=== PATIENT | male | born 1960 | race Caucasian/White ===

== ENCOUNTER → 2024-01-14 | Outpatient (CLI) | payer OTHER ==
[~2024-01-14] MED LIST: Iohexol 300 - 100 ML VIAL IV ONE; NS 100 ML IV SCH
== END ==
LOC: COL.RAD 10:21
DX: Z01.89 Encounter for other specified special examinations (principal); I65.23 Occlusion and stenosis of bilateral carotid arteries
CPT/HCPCS: Q9967